=== PATIENT | male | born 1975 | race Caucasian/White ===

== ENCOUNTER 2020-11-06 20:43 | Emergency (ER) | payer SELFPAY ==
[2020-11-06 21:41] LABS: HEMOGLOBIN 14.2 gm/dl (14.0-17.5); RED BLOOD COUNT 4.8 M/UL (4.20-5.50); WHITE BLOOD COUNT 8.4 K/UL (4.5-11.0)
[2020-11-06 22:01] LABS: BUN/CREATININE RATIO 18 (0-10)
[2020-11-06] MEDS ORDERED: K-DUR TAB 20 M20 MEQ PO (22:28)
[2020-11-06] MEDS ORDERED: CATAPRES 0.1MG0.1 MG PO (22:28)
[2020-11-06] MEDS ORDERED: ONDANSETRON ODT4 MG SL (22:28)
== END 2020-11-06 22:40 | disposition home or self-care (01) ==
LOC: ER1 20:43
PROVIDERS: Physician Assistant
DX: E87.6 Hypokalemia (principal); R11.2 Nausea with vomiting, unspecified; R19.7 Diarrhea, unspecified; F11.23 Opioid dependence with withdrawal; F17.200 Nicotine dependence, unspecified, uncomplicated
CPT/HCPCS: 80053; 83690; 85025; 96374; 96375; 99284; J1885; J2405